=== PATIENT | female | born 1975 | race African-American/Black ===

== ENCOUNTER 2019-03-03 03:19 | Emergency (ER) | payer OTHER ==
[~2019-03-03] VITALS: Ht 160 cm; Wt 70.3 kg
[~2019-03-03 03:19] MED LIST: SYNTHROID125 MCG PO
== END 2019-03-03 10:58 | disposition home or self-care (01) ==
LOC: ER 03:19
DX: R51 Headache (principal)

== ENCOUNTER → 2019-12-08 | Emergency (ER) | payer OTHER ==
[~2019-12-08] VITALS: Ht 162.6 cm; Wt 71.7 kg
[~2019-12-08] MED LIST changes: +ZESTRIL2.5 MG
== END | disposition left against medical advice (07) ==
LOC: ER 00:20
DX: Z53.20 Procedure and treatment not carried out because of patient's decision for unspecified reasons (principal)

== ENCOUNTER 2022-04-01 12:12 | Emergency (ER) | payer OTHER ==
[~2022-04-01] VITALS: Ht 162.6 cm; Wt 71.2 kg
[2022-04-01] MEDS ORDERED: PEPCID20 MG PO (18:07)
[2022-04-01] MEDS ORDERED: LEVSIN0.125 MG PO (18:07)
== END 2022-04-01 18:14 | disposition home or self-care (01) ==
LOC: ER 12:12
DX: K57.90 Diverticulosis of intestine, part unspecified, without perforation or abscess without bleeding (principal); R10.84 Generalized abdominal pain; N28.1 Cyst of kidney, acquired; N20.0 Calculus of kidney; E03.9 Hypothyroidism, unspecified; I10 Essential (primary) hypertension
CPT/HCPCS: 36415; 74177; Q9965

== ENCOUNTER → 2022-04-09 | Emergency (ER) | payer OTHER ==
[~2022-04-09] VITALS: Ht 162.6 cm; Wt 68.0 kg
[~2022-04-09] MED LIST changes: +INTESTINEX680 M1 PO; +LEVSIN/SL0.125 MG SL; +LEVSIN0.125 MG PO; +PEPCID20 MG PO; +ZOFRAN8 MG PO
== END | disposition home or self-care (01) ==
LOC: ER 22:32
DX: K52.89 Other specified noninfective gastroenteritis and colitis (principal); R10.13 Epigastric pain

== ENCOUNTER 2024-07-12 05:55 | Emergency (ER) | payer OTHER ==
[~2024-07-12] VITALS: Ht 165.1 cm; Wt 72.6 kg
[2024-07-12] MEDS ORDERED: KETOROLAC TROMETHAMINE 60 MG VIAL IM STA (07:03)
[2024-07-12] MEDS ORDERED: ORPHENADRINE CITRATE 30 MG/ML AMPUL IM STA (07:03)
[2024-07-12] MEDS ORDERED: ORPHENADRINE CITRATE 30 MG/ML AMPUL ONE (07:13)
[2024-07-12] MEDS ORDERED: KETOROLAC TROMETHAMINE 60 MG VIAL IM ONE (07:14)
[2024-07-12] MEDS ORDERED: KETO10TA2 PO (08:00)
[2024-07-12] MEDS ORDERED: NORFLEX100MG PO (08:00)
== END 2024-07-12 08:23 ==
LOC: ER 05:56
DX: M54.50 Low back pain, unspecified (principal); I10 Essential (primary) hypertension; E03.8 Other specified hypothyroidism